=== PATIENT | male | born 1950 | race Caucasian/White ===

== ENCOUNTER 2023-06-15 11:32 | Emergency (ER) | payer MEDICARE, SELFPAY ==
[2023-06-15] VITALS (8 sets, daily range): BP systolic 101–156; BP diastolic 59–104
--- NOTE | 2023-06-15 11:54 | ED.GENMED ---
History of Present Illness
General
Chief Complaint: Heart Rate Problem
Time Seen by Provider: 06/15/23 11:54
Travel History
Have you had any contact with someone who has COVID-19?: No
Do you have any symptoms of coronavirus? Fever > 100 degrees, chills, cough, shortness of breath, sore throat, loss of taste or smell, muscle aches, or headache?: No
History of Present Illness
History of Present Illness:
HPI: The patient has history of PVCs and has increasing palpitations. Today, he thought he had a 10 beat run of abnormal beats which he checked by palpation. The patient denies any chest pain or shortness of breath. 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 He reports an increased adrenergic drive. He cut out caffeine recently. He suspects there could be a component of anxiety as well.
EXAM:
GENERAL: Well appearing in no distress
HEENT: Moist oral mucosa
CARDIOVASCULAR: No murmurs, normal heart rate, regular rhythm with frequent ectopy, No chest wall tenderness
PULMONARY: No respiratory distress, breath sounds are clear and equal
ABDOMEN: Soft with no peritoneal signs, no tenderness
NEUROLOGIC: Excellent strength all extremities, no coordination deficits
PSYCHIATRIC: Appropriate mental status, normal insight and judgement
EXTREMITIES: Nontender, no edema, moves all extremities equally
SKIN: No rash, no lesions
TIME OF INITIAL ENCOUNTER: 12 PM
NUMBER AND COMPLEXITY OF PROBLEMS ADDRESSED AT THE ENCOUNTER
� Chronic conditions affecting care: PVCs
� Acute Exacerbation and/or Progression of Chronic Illness: This is an acute problem
� Differential Diagnosis includes: Symptomatic PVCs, symptomatic PACs, atrial fibrillation, other dysrhythmia, electrolyte normality, thyroid disease
AMOUNT AND/OR COMPLEXITY OF DATA TO BE REVIEWED AND ANALYZED
� I performed an independent evaluation of and my interpretation is:
EKG: Sinus 76, frequent PVCs which are monomorphic with brief runs of ventricular bigeminy
CT:
X-rays:
Laboratory Studies: CBC, chemistries including basic labs as well as magnesium and TSH are all normal
Other:
� Review of other/old records: No old records available for review
� Clinical information was obtained by an independent historian: None needed
� Prescriptions/Medications Considered but not given:
� Further testing considered but not performed:
RISK OF COMPLICATIONS AND/OR MORBIDITY OR MORTALITY OF PATIENT MANAGEMENT
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
� Discussion with other providers: Discussed case with Dr. Patel, on-call.
� Escalation of care including admission/observation vs risk of discharge considered: The patient's heart rate has been in the 50s to 60s and as high as 70 here. We gave low-dose of Lopressor. Labs are unremarkable. The
patient was given an IV dose of Lopressor 2.5 mg. Ventricular ectopy still noted. I notified Dr. Patel�he agrees with starting low-dose Toprol as an outpatient and the patient can follow-up as an outpatient.
Phy Exam
Physical Exam
Physical Exam:
See HPI
Course
Orders/Labs/Results
Orders:
Orders
06/15/23 11:34
EKG [Electrocardiogram (*1)] Urgent
Reason for Study: Palpitations
EKG- Treatment ONCE
06/15/23 11:59
Basic Metabolic Panel Urgent
Complete Blood Count/With Diff Urgent
Magnesium Urgent
TSH Reflex To Free T4 Urgent
06/15/23 12:17
Metoprolol [Lopressor] 2.5 mg IV NOW STA
Abnormal Lab Results
06/15/23
11:59
RBC 4.20 L 10^6/uL
(4.70-6.10)
MCV 95.7 H fL
(80.0-94.0)
MCH 32.1 H pg
(27.0-31.0)
Absolute Monos (auto) 0.7 H 10^3/uL
(0.1-0.6)
Monocytes % 10.2 H %
(1.7-9.3)
Chloride 109 H mmol/L
(98-107)
BUN 26 H mg/dl
(9-20)
Glucose 102 H mg/dl
(70-99)
06/15/23 11:59
06/15/23 11:59
Vital Signs
Initial and Last Documented VS:
Initial Vital Signs
Temp Pulse Resp BP Pulse Ox
98.5 F 54 16 155/98 98
06/15/23 11:35 06/15/23 11:35 06/15/23 11:35 06/15/23 11:35 06/15/23 11:35
Last Documented Vital Signs
Temp Pulse Resp BP Pulse Ox
98.5 F 66 9 156/99 98
06/15/23 11:35 06/15/23 12:30 06/15/23 12:30 06/15/23 12:15 06/15/23 11:35
*Critical Care Note
Total Time (30-74mins, 75-104mins- exclusive of procedures): Not Applicable
ED Attending Note
-
Portions of this chart may have been created with voice recognition software.� Occasional wrong word or��sound alike� substitutions may have occurred due to the inherent limitations of voice recognition software.
Discharge Plan
Departure
Patient Disposition: Home (Routine Discharge)
Date of Disposition: 06/15/23
Time of Disposition: 13:59
Patient with high blood pressure during this ER visit?: Yes
Discharge Problem:
Frequent PVCs
Prescriptions:
New
metoprolol succinate [Toprol XL] 25 mg tablet extended release 24 hr
12.5 mg PO DAILY Qty: 30 0RF
Referrals:
Bernardino Patel MD [Active] - Follow up in 1 week
Flako Gupta MD [Family Provider] -
Interventions
Interventions:
*Risk Screen - Suicide Last Done: 06/15/23 11:35
*General Assessment Last Done: 06/15/23 11:35
*Neglect/Abuse Screening Last Done: 06/15/23 11:35
*ED COVID-19 Vaccine History Last Done: 06/15/23 11:35
Discharge Date and Time
Print Language: INDONESIAN
[2023-06-15 12:06] LABS: % Basophils 0.4 % (0-2); % Eosinophils 3.3 % (0-6); % Immature Granulocytes 0.3 % (0-0.5); % Lymphocytes 24.6 % (20.5-51.1); % Monocytes 10.2 % (1.7-9.3); % Neutrophils 61.2 % (42.2-75.2); Absolute Eosinophils 0.2 10^3/uL (0-0.7); Absolute Lymphocytes 1.8 10^3/uL (1.2-3.4); Absolute Monocytes 0.7 10^3/uL (0.1-0.6); Absolute Neutrophils 4.5 10^3/uL (1.4-6.5); Hematocrit 40.2 % (39.0-52.0); Hemoglobin 13.5 g/dL (13.0-18.0); Mean Corp Hgb Conc. 33.6 g/dL (33.0-37.0); Mean Corpuscular Hgb 32.1 pg (27.0-31.0); Mean Corpuscular Volume 95.7 fL (80.0-94.0); Mean Platelet Volume 10.1 fL (7.4-10.4); Nucleated Red Blood Cells % 0 % (-); Platelet Count 240 10^3/uL (130-400); Red Cell Dist. Width 13.4 % (11.5-14.5); White Blood Cell Count 7.3 10^3/uL (4.8-10.8)
[2023-06-15 12:22] LABS: Blood Urea Nitrogen 26 mg/dl (9-20); Calcium 9.8 mg/dl (8.4-10.2); Carbon Dioxide 25 mmol/L (22-30); Chloride 109 mmol/L (98-107); Glucose 102 mg/dl (70-99); Magnesium 1.9 mg/dl (1.6-2.3); Potassium 4.2 mmol/L (3.5-5.1); Sodium 140 mmol/L (135-145); eGFR > 60.00
[2023-06-15] MEDS: LOPRESSOR 2.5 MG IV (12:45)
[2023-06-15 12:53] LABS: TSH Reflex To Free T4 2.44 uIU/ml (0.47-4.68)
== END 2023-06-15 14:28 | disposition home or self-care (01) ==
LOC: EMR 11:32
PROVIDERS: EMERGENCY PHYSICIAN Emergency Medicine; FAMILY PHYSICIAN Internal Medicine Geriatric Medicine
DX: I49.3 Ventricular premature depolarization (principal); R03.0 Elevated blood-pressure reading, without diagnosis of hypertension
CPT/HCPCS: 99284; 96374; 80048; 83735; 84443; 85025; 93005

== ENCOUNTER → 2023-07-04 13:14 | Outpatient (REF) | payer MEDICARE, SELFPAY | LOC: RCS 13:14 | PROVIDERS: ATTENDING PHYSICIAN Internal Medicine Cardiovascular Disease; FAMILY PHYSICIAN Family Medicine | DX: I49.3 Ventricular premature depolarization (principal) | CPT/HCPCS: 93306 ==

== ENCOUNTER 2024-02-27 06:18 | Day surgery (SDC) | payer MEDICARE, SELFPAY | END 2024-02-27 15:23 | disposition home or self-care (01) | LOC: GI 06:18 | PROVIDERS: ATTENDING PHYSICIAN Specialist | DX: D12.0 Benign neoplasm of cecum (principal); D12.3 Benign neoplasm of transverse colon; K63.5 Polyp of colon; K57.30 Diverticulosis of large intestine without perforation or abscess without bleeding; K64.8 Other hemorrhoids; R19.5 Other fecal abnormalities | CPT/HCPCS: 45385; 45380; 88305 ==

== ENCOUNTER → 2024-05-24 10:57 | Outpatient (REF) | payer MEDICARE, SELFPAY | LOC: HWRCS 10:57 | PROVIDERS: ATTENDING PHYSICIAN Internal Medicine Cardiovascular Disease; FAMILY PHYSICIAN Family Medicine | DX: I49.3 Ventricular premature depolarization (principal); R94.31 Abnormal electrocardiogram [ECG] [EKG] | CPT/HCPCS: 78452; 93017; A9500; J2785 ==

== ENCOUNTER → 2024-07-01 08:19 | Outpatient (REF) | payer MEDICARE, SELFPAY | LOC: PAVMRI 08:19 | PROVIDERS: ATTENDING PHYSICIAN Internal Medicine Cardiovascular Disease; FAMILY PHYSICIAN Family Medicine | DX: I49.3 Ventricular premature depolarization (principal) | CPT/HCPCS: 75561; 75565; A9585 ==

== ENCOUNTER → 2024-10-11 10:07 | Outpatient (REF) | payer MEDICARE, SELFPAY ==
[2024-10-11 10:53] LABS: Hematocrit 44.6 % (39.0-52.0); Hemoglobin 15.0 g/dL (13.0-18.0); Mean Corp Hgb Conc. 33.6 g/dL (33.0-37.0); Mean Corpuscular Volume 95.7 fL (80.0-94.0); Nucleated Red Blood Cells % 0 % (-); Platelet Count 264 10^3/uL (130-400); Red Cell Dist. Width 13.5 % (11.5-14.5)
[2024-10-11 11:10] LABS: INR 0.96; PT 13.1 Sec (11.4-14.6)
[2024-10-11 11:30] LABS: ALT (SGPT) 21 U/L (0-50); AST (SGOT) 24 U/L (17-59); Albumin 4.8 g/dl (3.5-5.0); Alkaline Phosphatase 60 U/L (38-126); Blood Urea Nitrogen 22 mg/dl (9-20); Calcium 10.3 mg/dl (8.4-10.2); Carbon Dioxide 26 mmol/L (22-30); Chloride 104 mmol/L (98-107); Glucose 110 mg/dl (70-99); Magnesium 1.7 mg/dl (1.6-2.3); Potassium 4.8 mmol/L (3.5-5.1); Sodium 139 mmol/L (135-145); Total Protein 7.9 g/dl (6.3-8.2); eGFR > 60.00
== END ==
LOC: SDSPAT 10:07
PROVIDERS: ATTENDING PHYSICIAN Internal Medicine Cardiovascular Disease; FAMILY PHYSICIAN Family Medicine
DX: I49.3 Ventricular premature depolarization (principal)
CPT/HCPCS: 36415; 80053; 83735; 85025; 85610; 93005

== ENCOUNTER 2024-10-27 07:57 | Day surgery (SDC) | payer MEDICARE, SELFPAY ==
[2024-10-11 10:31] VITALS: BMI 23.5
[2024-10-27] VITALS (9 sets, daily range): BP systolic 116–142; BP diastolic 69–114; BMI 22.7
[2024-10-27 12:32] LABS: ACT-LR - POC 265 Seconds (116-155)
[2024-10-27 12:56] LABS: ACT-LR - POC 271 Seconds (116-155)
[2024-10-27 13:13] LABS: ACT-LR - POC 369 Seconds (116-155)
[2024-10-27 13:29] LABS: ACT-LR - POC 347 Seconds (116-155)
[2024-10-27 13:57] LABS: ACT-LR - POC 327 Seconds (116-155)
[2024-10-27 14:14] LABS: ACT-LR - POC 186 Seconds (116-155)
[2024-10-27 14:17] LABS: ACT-LR - POC 141 Seconds (116-155)
--- NOTE | 2024-10-27 15:31 | ITS.CL.ABL ---
[facility] Department Worker - Ablation
Ablation
Procedure Report:
Primary Care: Dr Marisa Fernández
Procedure Date: 10/27/2024
Patient History:
The patient is a pleasant 74-year-old male with a past medical history significant for anxiety, mixed dyslipidemia, and symptomatic PVCs. Review of PVC morphologies demonstrated possible LCC/RCC/commissure versus left coronary cusp. Likely single
origin with multiple exit sites
See H&P for complete history.
Indication:
Symptomatic PVC with high PVC burden
Procedure
X VT Ablation procedure (62022) -- includes 3D mapping
X+LA/CS pacing (88832)
X+Intracardiac ultrasound (85472)
[ ]+Transseptal (83674)
[ ]+IV drug (99502)
[ ]+Other Arrhythmia (88593)
Method
NPO status confirmed. Grounding pad applied. Defibrillator pads applied. Continuous surface ECG, pulse oximetry, and blood pressure were monitored. Procedure was performed under conscious sedation with anesthesia services.
Both groins were clipped, prepped with Chloraprep, and draped in sterile fashion. Time out was called. Local anesthesia administered with bupivacaine. The right femoral vein was accessed for catheter placement, using ultrasound guidance (images
saved to record), micro-puncture needle/wire, and modified seldinger technique. 3 sheaths (short 9 Fr, short 10 Fr, and short 7 Fr) were placed in the right femoral vein. Arterial access was obtained using ultrasound guidance and a short 5 Fr
sheath was placed.
The following catheters were used:
X TactiFlex SE (D/F-curve) ablation catheter
X Viewflex 9Fr ICE catheter
X Inquiry decapolar 6Fr diagnostic catheter
[ ] 6Fr quadrapolar diagnostic catheter
X HD Grid multielectrode mapping catheter
Heparin was given prior toHD grid usage and left sided ablation. Heparin was given to achieve and maintain a target ACT of 300-400 seconds.
ICE and 3D mapping was performed to identify relevant cardiac structures. A trace pericardial effusion was noted at the basal LV which remained unchanged at the start of case and throughout the case. Pericardial effusion remained unchanged at the
completion of case. A careful 3D map was created to assess for regions of low-voltage and abnormal electrogram signals (late potentials, fractionation). See synopsis for details.
Catheter-based radiofrequency ablation was performed using a [employer] power generator. Target power was 30 Fernandez with careful monitoring of impedance, temperature, and EGM/rhythm. See synopsis for details.
At procedure conclusion, ICE was used to rule out pericardial effusion/change to pericardial effusion. Trace effusion remained unchanged. Hemostasis was obtained with figure of 8 suture for right femoral vein site. Protamine was used for reversal.
Right femoral arterial sheath was removed with ACT < 170. Manual pressure for the right femoral artery site.
Estimated Blood Loss
5 mL
Complications
None
Procedure Synopsis:
Patient entered the room in sinus rhythm with PVCs. Patient's dominant PVC morphology appeared to be LBI axis with notching V1 and transition V1-V2. Morphology is similar to patient's prior however lead I on prior ECGs was more negative while
slightly more positive/isoelectric on EGM during procedure. Anesthesia was provided by anesthesia services. PVCs continued. Intracardiac ultrasound was advanced in the right atrium. As noted above, a trace basal LV pericardial effusion was noted
at initiation of case. This remained unchanged during case and at case completion. Next, HD grid was advanced into the right ventricular outflow tract. Mapping of the right ventricular outflow tract PVC demonstrated relative late timing compared
to onset of QRS. Next, the short 5 [place] arterial sheath was upsized to a long braided 9 [place] sheath. The HD grid was then advanced into the LVOT. Earliest timing by EGM and morphology appeared to be at the left coronary cusp/right coronary
cusp/left-right commissure. HD grid was removed and tactiFlex ablation catheter was advanced into the left ventricle. Mapping was then performed in the LVOT beneath the valve. EGM demonstrated QS pattern and roughly 10 to 20 ms pre-QRS. Ablation
was performed underneath the left coronary cusp/right coronary cusp and at the right�left coronary cusp commissure. Brief suppression was noted in these areas however complete suppression did not occur. Mapping then performed above the valve
within each coronary cusp. Mapping within the right coronary cusp demonstrated a late EGM signal relative to QRS onset. Moving within the left coronary cusp, timing became early. Within the left coronary cusp adjacent to prior ablation, a 99% PVC
match with 23 ms early timing and significant QS on ablation distal unipolar signal was noted in this region. Ablation was performed and complete suppression of PVC was noted. Consolidation lesions were provided in this area. Electrophysiology
study was performed which demonstrated robust AV conduction which remained unchanged post ablation. Following the waiting period of greater than 30 minutes, no PVCs were noted, catheters were removed and hemostasis was achieved.
Fluoroscopy: 8.9 minutes; 64.94 mGy; DAP 7.14
Baseline Intervals:
Rhythm: SR
NE: 159 ms
QRS: 89 ms
QT: 433 ms
QTc: 447 ms
Post-Procedure Intervals:
NE: 176 ms
QRS: 89 ms
QT: 367 ms
QTc: 412 ms
Recommendations
1. Bedrest with straight-leg precautions as ordered
2. Admit with anticipate discharge home tomorrow after overnight observation
3. Resume home medications as indicated
4. Follow-up in office as scheduled
Chavez Mercedes DO, FACC, RS
Clinical Cardiac Public Safety Director
cc: Dr Marisa Fernández
--- NOTE | 2024-10-27 16:59 | CM ---
Reviewed chart. Met with Mr. Bang to review discharge plans. He states prior to admission he resides alone in a one story home with one step to enter. He states prior to admission he was independent with ambulation and adls.He states he does not h
ave any DME in the home. He states he has a prescription plan and uses [facility]. The discharge plan is to return home when medically stable.
--- NOTE | 2024-10-27 19:03 | PTCARENOTE ---
~1500: Patient arrived from [facility] s/p PVC ablation. Pt AOx4, NSR/SB 50s-60s on tele, SBP 120s-130s, RA satting 95%. Pt states minor discomfort in R groin area but does not want anything at this time. Pt oriented to room and call chang system. Per
Mago, d/t sheat size being a 9Fr, he would like patient to stay flat for 6hours and the figure of 8 sutures to be removed at the sanme time. EKG obtained and admission questions completed. All needs met at this time, call chang within reach.
~8686-9580: Patient remains bedrest. HOB elevated slightly per order, groin site soft. HR 57-63 at this time, Dr. Mercedes made aware, verbal order to hold toprol xl 50mg for tonight.
~4718-1858: VSS, all needs met at this time, call chang within reach. Handoff report given to nightshift RN.
[2024-10-27] MEDS: TYLENOL 650 MG PO (20:59)
--- NOTE | 2024-10-27 23:29 | PTCARENOTE ---
Received patient at change of shift. SR on the monitor, HR in the 60s. R groin sutures clipped at 20:15. Dressing now with small amount of marked drainage. Pt complains of 3/10 headache, PRN Tylenol administered as per order, see MAR. Call chang
within reach.
[2024-10-28 02:44] VITALS: BP 123/81
[2024-10-28] MEDS: TYLENOL 650 MG PO (02:57)
[2024-10-28 03:15] LABS: Hematocrit 35.0 % (39.0-52.0); Hemoglobin 11.9 g/dL (13.0-18.0); Mean Corp Hgb Conc. 34.0 g/dL (33.0-37.0); Mean Corpuscular Volume 94.3 fL (80.0-94.0); Platelet Count 178 10^3/uL (130-400); Red Cell Dist. Width 13.0 % (11.5-14.5)
[2024-10-28 03:19] LABS: Blood Urea Nitrogen 15 mg/dl (9-20); Calcium 9.1 mg/dl (8.4-10.2); Carbon Dioxide 24 mmol/L (22-30); Chloride 109 mmol/L (98-107); Estimated Creatinine Clearance 104 ml/min; Glucose 107 mg/dl (70-99); Magnesium 1.8 mg/dl (1.6-2.3); Potassium 4.3 mmol/L (3.5-5.1); Sodium 137 mmol/L (135-145); eGFR > 60.00
[2024-10-28 07:00] VITALS: BP 114/69
[2024-10-28] MEDS: LIPITOR 20 MG PO (08:24)
[2024-10-28] MEDS: TOPROL XL 25 MG PO (09:19)
--- NOTE | 2024-10-28 09:49 | W.PN.CARDCBS ---
Addendum entered and electronically signed by Fabrice Lemus MD 10/28/24 14:13:
Patient seen, interviewed and examined by me.
He tells me that he feels well. He said no palpitations at all since his ablation. No chest pain shortness of breath or dizziness. He has been up and ambulating and overall feels well.
Well-appearing, no acute distress
Regular rate and rhythm with normal S1 and S2, no S3 no S4. There is a grade 1/6 apical holosystolic murmur and no rubs. PMI is normally placed.
Lungs are clear to auscultation bilaterally without wheezes rales or rhonchi.
Abdomen soft nontender nondistended with normoactive bowel sounds
Right groin with no hematoma or bruits. +2 pulses at the groin and distally.
Extremities show trace pretibial edema bilaterally no clubbing or cyanosis.
Neurologic exam is grossly nonfocal.
I reviewed yesterday's case findings and results with him in detail. I reviewed telemetry results with him. Telemetry since his ablation has failed to show a single PVC. He has remained in sinus rhythm with no arrhythmias.
He has some baseline bradycardia and therefore I recommended we reduce Toprol-XL to 25 mg daily. He understands this and agrees.
Activity restrictions reviewed, no heavy lifting exercising or yard work for 5 days.
He will see Dr. Mercedes again in the office in approximately 3 months. He knows to call if he has any further questions or concerns.
All of his questions have been answered.
Stable for discharge to home today.
Original Note:
Today's Communication / Plan
-
post PVC ablation
stable for d/c home
Impression / Plan
-
Primary Care physician: Dr Marisa Fernández
Primary rack pusher: Chavez Mercedes, DO
Impression:
Symptomatic PVC with 19% burden
post PVC ablation 10/27/24
mixed dyslipidemia
BPPV
osteoarthritis
mild MR
Anxiety
former smoker
Plan:
post ablation feels great
tele SR/SB no significant ectopy
groin stable with some drainage, will change before d/c
HR low o/n will decrease metoprolol to 25mg daily
stop metoprolol 50mg qpm
Activity restrictions reviewed
f/u Dr. Mercedes in 3 mo
stable for d/c home today
Progress Note - Wool Sacker
Subjective
Date of Service: October 28, 2024
denies cp, sob
Objective
Labs:
10/28/24 02:54
10/28/24 02:54
Labs
Hgb 11.9 g/dL (13.0-18.0) L 10/28/24 02:54
Hct 35.0 % (39.0-52.0) L 10/28/24 02:54
Plt Count 178 10^3/uL (130-400) 10/28/24 02:54
Sodium 137 mmol/L (135-145) 10/28/24 02:54
Potassium 4.3 mmol/L (3.5-5.1) 10/28/24 02:54
BUN 15 mg/dl (9-20) 10/28/24 02:54
Creatinine 0.7 mg/dL (0.7-1.3) 10/28/24 02:54
Glucose 107 mg/dl (70-99) H 10/28/24 02:54
Vital Signs and I&O:
Vital Signs
Temp Pulse Resp BP Pulse Ox
98.3 F 72 20 144/69 96
10/28/24 07:00 10/28/24 09:30 10/28/24 07:00 10/28/24 09:19 10/28/24 07:00
Vital Signs
Temp Pulse Resp BP Pulse Ox
98.3 F 72 20 144/69 96
10/28/24 07:00 10/28/24 09:30 10/28/24 07:00 10/28/24 09:19 10/28/24 07:00
Intake & Output
10/26/24 10/27/24 10/28/24 10/29/24
06:59 06:59 06:59 06:59
Output Total 425 / 425
Balance -425 / -425
Physical Exam
Physical Exam
NAD, AOx3
S1, S2, RRR
CTAB, non labored
SNTND Bsx4
R fem site with some bloody drainage, soft, non tender, no HT
--- NOTE | 2024-10-28 09:56 | CM ---
Reviewed chart. Met with Mr. bell to review discharge plans. He states he feels well and maybe able to go home soon. Prior to admission he resides alone in a one story home with one step to enter.Prior to admission he was independent with
ambulation and adls. He does not h ave any DME in the home. He has a prescription plan and uses [facility]. The discharge plan is to return home when medically stable.
--- NOTE | 2024-10-28 10:45 | PTCARENOTE ---
~[id number]: Handoff report received from nightshift RN. Pt Aox4, NSR 70s-80s on tele, SBP 130s-140s, RA satting 96%. Pt denies pain at this time. R groin site soft, dressing with old drainage so dressing changed with sterile 4x4 and tegaderm. Pt
independent in room. All needs met at this time, call chang within reach.
~6421-2914: Dc orders in place. Tele pack removed. patient dressed indpeendently. DC paperowkr reviewed with patient and all questions answered. Patient wheeled down to the lobby in stable condition.
--- NOTE | 2024-10-28 11:42 | W.DS.TRANS ---
DC Summary - Permit Review Assistant
-
Discharge Instructions:
Discharge Diagnosis/Procedures PVCs, s/p ablation
Diet Low Cholesterol
Driving Restrictions No driving for 24 hours
Instructions:
Stand-Alone Forms: DC Instructions- Cath/EP Lab
Changes to Home Medications: Yes
Discharge Medications:
DC Medications w/original date entered in [employer]
atorvastatin 20 mg tablet 20 mg PO DAILY 10/06/24
ibuprofen 200 mg tablet 600 mg PO Q6H PRN pain 10/06/24
multivitamin 1 tab PO DAILY 10/06/24
metoprolol succinate 25 mg tablet,extended release 24 hr (Toprol XL) 25 mg PO DAILY 10/11/24
triamcinolone acetonide 0.1 % topical cream 1 applic topical DAILYPRN PRN atopic dermatitis 10/11/24
acetaminophen 500 mg tablet 1,000 mg PO Q6H PRN pain 10/27/24
Home Medication Changes
stopped PM dose of metoprolol 50mg
Pending Results: No
== END 2024-10-28 10:45 | disposition home or self-care (01) ==
LOC: CATH 07:57
PROVIDERS: Nurse Practitioner; ATTENDING PHYSICIAN Internal Medicine Cardiovascular Disease; FAMILY PHYSICIAN Family Medicine
DX: I49.3 Ventricular premature depolarization (principal); H81.10 Benign paroxysmal vertigo, unspecified ear; M19.90 Unspecified osteoarthritis, unspecified site; I34.0 Nonrheumatic mitral (valve) insufficiency; F41.9 Anxiety disorder, unspecified; G56.03 Carpal tunnel syndrome, bilateral upper limbs; L20.9 Atopic dermatitis, unspecified; L43.9 Lichen planus, unspecified; Z86.0100 Personal history of colon polyps, unspecified; E83.52 Hypercalcemia; Z79.899 Other long term (current) drug therapy; F17.210 Nicotine dependence, cigarettes, uncomplicated
CPT/HCPCS: 93662; C1732; C1894; C1730; C1769; C1766; 80048; 83735; 85027; 85347; 93005; 93621; 93654; C1892